=== PATIENT | male | born 1995 | race Caucasian/White ===

== ENCOUNTER 2022-10-30 18:06 | Emergency (ER) | payer MEDICAID ==
[~2022-10-30] VITALS: Ht 175.3 cm; Wt 149.7 kg
[2022-10-30 18:14] VITALS: BP 141/84
--- NOTE | 2022-10-30 18:21 | NUR ---
27 y/o male biba from urgent care, c/o anxiety, chills and chest pain that started 1 hr prior to arrival. pt describes as aching 2/10 pain. denies sob, fever, cough, sore throat, or sick contacts at home. a&ox4, ambulates with steady gait. pmh: asthma, adhd allergy: peanuts (swelling) med: denies
[2022-10-30] MEDS ORDERED: diazePAM 5 MG TAB PO ONE (18:30)
[2022-10-30] MEDS ORDERED: IBUPROFEN 600 MG TAB PO ONE (18:30)
[2022-10-30 19:14] LABS: BASOPHILS % (AUTO) 0.4 % (0.0-2.0); EOSINOPHILS # (AUTO) 0.1 K/uL (0-0.4); EOSINOPHILS % (AUTO) 0.9 % (0.0-4.0); HEMATOCRIT 44.3 % (36-52); HEMOGLOBIN 15.3 g/dL (12.0-18.0); LYMPHOCYTES # (AUTO) 1.2 K/uL (2.0-11.5); LYMPHOCYTES % (AUTO) 11.8 % (20.5-51.1); MEAN CORPUSCULAR HEMOGLOBIN 29 pg (27-31); MEAN CORPUSCULAR HGB CONC 35 g/dL (33-37); MONOCYTES # (AUTO) 0.5 K/uL (0.8-1.0); MONOCYTES % (AUTO) 5.2 % (1.7-9.3); NEUTROPHILS # (AUTO) 8.6 K/uL (1.8-7.7); NEUTROPHILS % (AUTO) 81.7 % (42.2-75.2); PLATELET COUNT (AUTO) 244 K/uL (140-450); RED BLOOD CELL COUNT(AUTO) 5.33 MIL/uL (4.20-6.10); RED CELL DISTRIBUTION WIDTH 13.9 % (11.6-13.7); WHITE BLOOD COUNT (AUTO) 10.5 K/uL (4.8-10.8)
[2022-10-30 19:19] LABS: ANION GAP 10.8 (8-16); CARBON DIOXIDE 28.8 mmol/L (21-32); CREATININE 0.9 mg/dL (0.6-1.3); POTASSIUM 3.6 mmol/L (3.5-5.1)
[2022-10-30 19:49] VITALS: BP 141/84
--- NOTE | 2022-10-30 19:49 | NUR ---
Patient discharged with v/s stable. Written and verbal after care instructions given and explained. Patient verbalized understanding. Ambulatory with steady gait. All questions addressed prior to discharge. Advised to follow up with PMD.
== END 2022-10-30 19:49 | disposition home or self-care (01) ==
LOC: MED 18:06
DX: R07.89 Other chest pain (principal); F12.90 Cannabis use, unspecified, uncomplicated; F17.210 Nicotine dependence, cigarettes, uncomplicated; J45.909 Unspecified asthma, uncomplicated; Z79.899 Other long term (current) drug therapy; Z91.010 Allergy to peanuts
CPT/HCPCS: 36415; 80048; 84484; 85025; 93005; 99284